=== PATIENT | male | born 1980 | race Caucasian/White ===

== ENCOUNTER 2020-10-08 19:18 | Inpatient (IN) | payer SELFPAY ==
[2020-10-08 19:19] VITALS: BP 147/121; PULSE 84; RESP 18; TEMP 36.6; O2SAT 92; BMI 49.6
--- NOTE | 2020-10-08 19:19 | XRR_ITS ---
PROCEDURE INFORMATION: Exam: XR Chest Exam date and time: 10/08/2020 7:19 PM Age: 40 years old Clinical indication: Pain; Shortness of breath; Left-sided; Patient HX: Left sided cp radiating to jaw and left armpit x today TECHNIQUE: Imaging protocol: XR of the chest. Views: 1 view. Total images: 1 COMPARISON: No relevant prior studies available. FINDINGS: Lungs: No visible active interstitial or alveolar airspace disease. Pleural spaces: Unremarkable. No pleural effusion. No pneumothorax. Heart/Mediastinum: Unremarkable. No cardiomegaly. Bones/joints: Unremarkable. Soft tissues: Heavy body habitus. XR/XR chest 1V portable [id number] IMPRESSION: Nonacute.
--- NOTE | 2020-10-08 19:20 | ECG_ITS ---
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 Measurements Intervals [place] Rate: 81 P: 42 [place]: 191 QRS: 5 QRSD: 109 T: 56 QT: 377 QTc: 439 Interpretive Statements SINUS RHYTHM No previous ECG available for comparison Electronically Signed On 10-08-2020 23:10:49 CDT by Aron Seay M.D. [id number]
--- NOTE | 2020-10-08 19:25 | W.ED.CHESTPA ---
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 States pressure type pain in center of his chest that radiated to his jaw and his arm and had some dyspnea as well with that. Patient's pain is been resolved with nitro. Patient transferred here from [facility] to be admitted for unstable angina. Associated symptoms: Deny abdominal pain, dyspnea, fever(s), nausea or vomiting Review of Systems Const: Denies: fever(s), chills, body aches or change in appetite Eyes: Denies: blurry vision or eye discomfort ENMT: Denies: throat pain or dental pain Card: Reports: chest pain Resp: Denies: dyspnea GI: Denies: abdominal pain, nausea, vomiting or diarrhea : Denies: dysuria Musc: Denies: neck pain or back pain Skin/Breast: Denies: rash Neuro: Denies: headache(s) Psych: Denies: depression [place]/Lymph: Denies: easy bruising All/Imm: Denies: urticaria Physical Exam Const: COMMON NORMALS: no acute distress, patient oriented x3 and healthy appearing HENMT: COMMON NORMALS: normocephalic and atraumatic HEAD & SCALP: normocephalic and atraumatic Eye: COMMON NORMALS: Equal, round and reactive pupils present and EOMs intact bilaterally PUPIL: Yes Equal, round and reactive pupils present Neck/C-Spine: COMMON NORMALS: full ROM and supple Chest: COMMONS NORMALS: normal inspection of the chest and normal palpation of entire chest wall Resp: COMMON NORMALS: normal respiratory effort, No retractions, No use of accessory muscles and clear to auscultation bilaterally AUSCULTATION: clear to auscultation bilaterally Cardio: COMMON NORMALS: regular rate, regular rhythm and No murmurs present (Cardio) RATE: regular rate RHYTHM: regular rhythm GI: COMMON NORMALS: Normal to inspection, nondistended, normoactive bowel sounds present, Soft to palpation, non-tender and no masses PALPATION: Yes Soft to palpation Extremity: COMMON NORMALS: normal to inspection and full ROM Neuro: COMMON NORMALS: patient oriented x3, moves all extremities and no focal motor deficits Psych: COMMON NORMALS: mental status grossly normal, Normal thought process present and cooperative THOUGHT PROCESS: Normal thought process present Skin: COMMON NORMALS: no rashes or lesions noted and no wounds GENERAL SKIN EXAM: no rashes or lesions noted Course Vital Signs: Vital signs: Vital Signs Temperature 97.9 F 10/08/20 19:19 Pulse Rate 84 10/08/20 19:19 Respiratory Rate 18 10/08/20 19:19 Blood Pressure 147/121 10/08/20 19:19 Pulse Oximetry 92 10/08/20 19:19 MDM - Chest Pain MDM Narrative: Medical decision making narrative: Patient presents here with chest pain that is since resolved. Spoke to hospitalist will admit for ACS rule out. EKG and troponin here are normal. Lab Data: Labs: Lab Results 10/08/20 10/08/20 10/08/20 Range/Units 19:29 19:29 19:29 WBC 10.4 H (4.0-10.0) 10^3/ uL RBC 4.54 (4.1-5.3) 10^6/u L Hgb 14.0 (11.7-16.6) g/dL Hct 42.5 (42.0-52.0) % MCV 93.6 (80-94) fL MCH 30.8 (28.0-34.0) pg MCHC 32.9 (30.0-36.0) g/dL RDW 12.8 (12.1-15.1) % Plt Count 250 (130-400) 10^3/c mm MPV 10.0 (7.4-10.4) fL Neut % (Auto) 58.7 % Lymph % (Auto) 31.3 % Dane % (Auto) 7.0 % Eos % (Auto) 2.2 % Baso % (Auto) 0.5 % Neut # (Auto) 6.08 (1.8-7.7) 10^3/u L Lymph # (Auto) 3.2 (0.8-4.8) 10^3/u L Dane # (Auto) 0.7 (0.2-0.9) 10^3/u L Eos # (Auto) 0.2 (0.0-0.8) 10^3/u L Baso # (Auto) 0.1 (0.0-0.1) 10^3/u L Nucleated RBC % (a uto) 0 % Nucleated RBCs # 0.0 /100WBC Sodium 140 (136-145) mmol/L Potassium 4.0 (3.5-5.1) mmol/L Chloride 104 (98-107) mmol/L Carbon Dioxide 26 (22-29) mmol/L Anion Gap 14.0 (5-19) BUN 10 (6-20) mg/dL Creatinine 1.0 (0.7-1.2) mg/dL GFR Calculation 83.2 L (90-130) mL/min Glucose 110 (65-115) mg/dL Calculated Osmolal ity 290 (285-295) mOsm/k g Calcium 8.4 L (8.5-10.5) mg/dL Total Bilirubin 0.4 (0.15-1.2) mg/dL AST 24 (0-40) U/L ALT 27 (0-41) U/L Alkaline Phosphata se 137 H (40-130) IU/L Troponin T Baselin e 6 (0-15) ng/L Total Protein 7.1 (6.6-8.7) g/dL Albumin 3.8 (3.5-5.2) g/dL Globulin 3.3 (1.3-4.6) g/dL EKG Data^: EKG 1: Attestation: I personally reviewed and interpreted this EKG as follows: EKG interpretation date: 10/08/20 EKG interpretation time: 19:26 Interpretation: nsr hr [address] or t wave abnormalities qrs 109 qtc 414 Discharge Plan Discharge Patient Disposition: Admitted As Inpatient Clinical Impression: Chest pain Condition: Stable Coding Level of Care Code ED Sr. Operations Manager for Chg Fwd Exam Comprehensive
[2020-10-08 19:36] LABS: Basophils # 0.1 10^3/uL (0.0-0.1); Basophils % 0.5 %; Eosinophils # 0.2 10^3/uL (0.0-0.8); Eosinophils % 2.2 %; Hematocrit 42.5 % (42.0-52.0); Lymphocytes # 3.2 10^3/uL (0.8-4.8); Lymphocytes % 31.3 %; Mean Corpuscular HGB Conc 32.9 g/dL (30.0-36.0); Mean Corpuscular Hemoglobin 30.8 pg (28.0-34.0); Mean Corpuscular Volume 93.6 fL (80-94); Monocytes # 0.7 10^3/uL (0.2-0.9); Neutrophils # 6.08 10^3/uL (1.8-7.7); Neutrophils % 58.7 %; Nucleated Red Blood Cells % 0 %; Platelet Count 250 10^3/cmm (130-400); Red Blood Count 4.54 10^6/uL (4.1-5.3); Red Cell Distribution Width 12.8 % (12.1-15.1); White Blood Count 10.4 10^3/uL (4.0-10.0)
[2020-10-08 19:50] LABS: Troponin(5th) Baseline 6 ng/L (0-15)
[2020-10-08 19:54] LABS: Alanine Aminotransferase 27 U/L (0-41); Albumin Level 3.8 g/dL (3.5-5.2); Alkaline Phosphatase 137 IU/L (40-130); Aspartate Amino Transferase 24 U/L (0-40); Blood Urea Nitrogen 10 mg/dL (6-20); Calcium 8.4 mg/dL (8.5-10.5); Carbon Dioxide 26 mmol/L (22-29); Chloride 104 mmol/L (98-107); Globulin 3.3 g/dL (1.3-4.6); Glomerular Filtration Rate 83.2 mL/min (90-130); Glucose 110 mg/dL (65-115); Osmolality Calculated 290 mOsm/kg (285-295); Sodium 140 mmol/L (136-145); Total Bilirubin 0.4 mg/dL (0.15-1.2); Total Protein 7.1 g/dL (6.6-8.7)
[2020-10-08 20:15] VITALS: BP 157/103; PULSE 88; RESP 21; O2SAT 96
[2020-10-08] MEDS: LORazepam 2 mg/mL INJ 1 mL 1 MG IVP (20:38)
[2020-10-08 20:43] VITALS: BP 157/103; PULSE 90; RESP 17; O2SAT 97
[2020-10-08 20:56] VITALS: BP 147/95; PULSE 86; RESP 24; TEMP 36.7; O2SAT 97
[2020-10-08 21:56] LABS: Troponin 5 2HR Delta 0 ABS# (0-10)
[2020-10-08 22:00] VITALS: PULSE 85
--- NOTE | 2020-10-08 22:38 | PM.HP ---
Providers/Chief Complaint Admitting Physician: Catalina Carver MD Primary Care Provider: None Chief Complaint: CHEST PAIN History of Present Illness Kee Ames is a 40 year old male who presented to [facility] via ambulance for chest pain. 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 He had worked during the day taking care of usual things related to his cargo without any difficulties. After working on one such load he went to get in the truck and had onset of chest discomfort and difficulty breathing. He stopped the truck and got out and tried to walk around to the other side and his pain became much more significant. It is located in the center of the chest. Described as a tightness. At its worst a 10 out of 10. It radiated up into this left arm and jaw area. He describes not being able to catch his breath. He was diaphoretic, nauseated and had 2 episodes of vomiting. He takes a baby aspirin daily and was given aspirin via EMS. Sublingual nitroglycerin and IV metoprolol plus Nitropaste led to resolution of his symptoms. Initial EKG did not show any acute ST segment changes. Initial troponin at outside facility was in normal limits. He has a family history of premature coronary artery disease with his paternal grandfather dying before age 50 of heart disease. His father and his brother also have heart problems. He has had 1 similar episode a couple of years ago when he was driving in [place]. That episode was not as severe as this 1. He underwent arteriogram that he describes as having showed a 40% blockage in a vessel. He is not certain which vessel was blocked. He started aspirin therapy then and was also prescribed lisinopril for blood pressure control. He does not take the lisinopril regularly and admits to having 9 for at least a month. He has never had any other cardiac testing. He does not follow regularly with a primary care provider. Denies any diabetes or hyperlipidemia. He does smoke about three quarters of a pack of cigarettes a day. He admits to having anxiety that can be quite severe. He has had panic attacks before but said that this episode was very different from what he considers his usual anxiety attacks. According to the ER physician in [facility] ED provider spoke with Dr. Seay who recommended transfer to our emergency room and admission to hospitalist service. Repeat EKG and troponin here were unremarkable. He has not had any recurrent chest pain but he has been quite anxious now concerned that something is going on. He received a dose of Ativan in our emergency room. He has taken Xanax in the past but is not on any presently. Given his history and description of acute event today he is being admitted to observation status for further evaluation as indicated. Review of Systems Const: Reports: diaphoresis; Denies: fever(s) or chills ENMT: Denies: throat pain or nasal congestion Card: Reports: chest pain, pre-syncope and dyspnea on exertion; Denies: palpitations, edema or orthopnea Resp: Reports: dyspnea and productive cough (Mild smoker's cough); Denies: non-productive cough, pain on inspiration or hemoptysis GI: Reports: nausea and vomiting; Denies: abdominal pain, diarrhea, constipation, hematochezia or melena : Reports: difficulty with ejactulations and erectile dysfunction (on no meds for this); Denies: difficulty urinating Musc: Denies: other (complaints of joint or muscle pain) Skin/Breast: Denies: rash or sores Neuro: Denies: headache(s), numbness in extremities, weakness in extremities or difficulty walking Psych: Reports: anxiety, depression and panic attacks; Denies: suicidal ideation [place]/Lymph: Denies: easy bleeding Medications/Allergies Home Medications Medication Instructions Recorded Confirmed Last Taken Type aspirin [Aspirin Low Dose] 81 mg PO DAILY 10/09/20 10/09/20 10/08/20 History Allergies Allergy/AdvReac Type Severity Reaction Status Date / Time No Known Allergies Allergy Verified 10/08/20 19:23 PFSH Acute PFSH: Medical History (Updated 10/09/20 @ 01:05 by Catalina Carver MD) Anxiety and depression BMI 45.0-49.9, adult Hypertension Surgical History (Updated 10/09/20 @ 00:45 by Catalina Carver MD) History of arteriography (~2018) 40% blockage one vessel, details unknown otherwise, performed in [place] Family History (Updated 10/09/20 @ 00:42 by Catalina Carver MD) Grandfather CAD (coronary artery disease) Paternal grandfather, age less than 50 from heart disease Father , in 2018, had multiple comorbid conditions contributing Diabetes CAD (coronary artery disease) Parkinson's disease Brother CAD (coronary artery disease) Social History (Updated 10/09/20 @ 00:43 by Catalina Carver MD) Smoking and tobacco status: current every day smoker cigarettes Number of cigarettes per day: 11-20 Alcohol intake: current Alcohol intake frequency: holidays/special occasions only Substance/Drug Use: never Household members: spouse Marital status: Current occupational status: employed 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 Vitals/I&O/Wt Last Vital Signs Temp 98.1 F 10/08/20 20:56 Pulse 85 10/08/20 22:00 Resp 24 H 10/08/20 20:56 BP 147/95 10/08/20 20:56 Pulse Ox 97 10/08/20 20:56 10/08/20 10/08/20 10/09/20 14:59 22:59 06:59 Output Total 250 / 250 Balance -250 / -250 Weight last 48 hrs Weight 189.602 kg Physical Exam Narrative: EXAM NARRATIVE: Constitutional: Awake and alert, anxious but cooperative HEENT: Normocephalic atraumatic pupils are equally reactive nasopharynx is clear, oropharynx is clear with moist mucous membranes Neck: Large but supple Respiratory: Clear to auscultation bilaterally without any rales rhonchi or wheezes Cardiovascular: Regular rate and rhythm, no murmurs gallops or rubs, no appreciable JVD, 2+ radial pulses, 1+ pedal pulses Abdomen: Soft, obese, nontender, positive bowel sounds Extremities: Pitting edema, no palpable cords or calf tenderness Skin: No large bruises or rashes Neuro: Speech clear, face symmetric, handgrip equal, no abnormal movements Psych: Normal affect, a bit anxious but appears to have some good insight into his anxiety and depression issues and is able to talk to about them even if he is not sure what to do. Not suicidal 1. Data : 10/08/20 19:29 10/08/20 19:29 A&P Assessment and plan (1) Chest pain: Fairly classic description of anginal pain although with normal EKG and troponin presently. He had a angiogram a couple of years ago in [place] for similar but less severe symptoms. Reports he had a 40% blockage although was unsure which vessel. Was diagnosed with hypertension at that time and started on lisinopril and aspirin therapy but has been inconsistent in compliance due to not having a primary care provider and cost. He does smoke and his blood pressure was quite elevated upon presentation to outside facility. Hypertension, pulmonary hypertension, obesity hypoventilation, thromboembolic event, anxiety, gastroesophagitis or sequela from infection are all within the differential as was reviewed with the patient. Status: Acute Qualifiers: Chest pain type: precordial pain Qualified Code(s): R07.2 - Precordial pain (2) Hypertension: Status: Chronic Qualifiers: Hypertension type: essential hypertension Qualified Code(s): I10 - Essential (primary) hypertension (3) History of arteriography: Status: Chronic (4) Family history of premature CAD: Status: Chronic (5) Anxiety and depression: Status: Acute (6) Nicotine dependence, cigarettes, uncomplicated: Status: Acute (7) BMI 45.0-49.9, adult: Status: Chronic Additional A&P Information Observation admission Continue serial cardiac enzymes Telemetry monitoring overnight Check lipid panel and hemoglobin A1c Resume lisinopril at 20 mg dosing Sublingual nitroglycerin as needed Continue aspirin therapy Plan for stress testing in the morning Given that he is 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 He is not interested currently in trying to quit smoking but realizes that he is either smoking or having to ask for medications to help with his nerves if he is not smoking. He is aware of options such as nicotine patch or nicotine gum. -Reviewed with patient some behavioral techniques to try to manage his anxiety and depression symptoms including walking, taking deep breaths, positive self talk, being open with his about the things going on which it sounds like he is. He did discuss what I suspect is an effect on libido and I know that this is at least part of something that is bothering him right now from what he shared. Reviewed with him that ensuring that his blood vessels are okay including things like not smoking, managing his blood pressure may help decrease this from being a problem. We talked about the fact that some medications for anxiety and depression can also contribute to this and that he should be open in that regard should he seek out a primary care or other provider to assist him. I encouraged him to establish primary care to talk about his symptoms. He wants to try to get better and had good participation and insight during our discussion. Currently low risk for VTE Anticipated disposition to home Recommend establishing primary care either in [facility] or here and maintaining regular follow-up to help him not only with management of his blood pressure and other cardiac risk factors but also with his depression and anxiety as needed. Did review with him that there are medication assistance programs such as a [address] or other pharmacy assistance program which may be available in [facility] and if not it is something that could be utilized through one of our providers here in [place] if needed Plans, findings and concerns were discussed with the patient as well as his . Both were given an opportunity to ask questions. Full code Attestations Medical Necessity Statement*: Anticipated stay less than 2 midnights in a patient presenting with chest pain strongly suspicious for angina although with unremarkable EKGs and cardiac enzymes thus far. He does have a family history of early cardiac . Coding Level of Care Code Acute Orthopedic Physical Therapist for Corinag Juliocesard Diagnoses Chest pain R07.2 Chest pain type: precordial pain Hypertension I10 Hypertension type: essential hypertension History of arteriography Z98.890 Family history of premature CAD Z82.49 Anxiety and depression F41.9; F32.9 Nicotine dependence, cigarettes, uncomplicated F17.210 BMI 45.0-49.9, adult Z68.42
[2020-10-09] VITALS (7 sets, daily range): BP systolic 142–162; BP diastolic 95–108; PULSE 58–87; RESP 15–24; TEMP 36.7; O2SAT 98
[2020-10-09] MEDS: zolpidem 5 mg Tablet PO (00:01)
[2020-10-09] MEDS: ALPRAZolam 0.25 mg Tablet PO ×2 (00:01→09:51)
--- NOTE | 2020-10-09 00:29 | NMCV_ITS ---
NM harris perf SPECT r/s* [id number] Kee Ames Age: 40 Gender: M : 1980 Exam Date: 10/09/2020 07:08 Ordering Phys: Catalina Carver MD Technologist: CARLO Wilkins Exam Location: [facility] Indications: CHEST PAIN STRESS TEST [facility] IMAGE PROTOCOL Rest/Stress 1 Lexiscan Day Radiopharmaceutical Dose (mCi) Administration Site Administered by Rest: Tc-99m 10.9 IV CARLO Croft Sestamibi Stress:Tc-99m 33.0 IV CARLO Croft Sestamibi Rest: 09-Oct-2020 60 Discovery 630 Stress: 09-Oct-2020 30 Discovery 630 0.4mg Lexiscan. Images obtained in supine and prone position. SPECT RESULTS Technical Quality: Excellent Raw Data Analysis: Normal Image Corrections: No attenuation or motion correction applied Summed Stress Score: 0 Summed Rest Score: 1 Summed Difference Score: 0 PERFUSION FINDINGS There is an area of persistent low radiotracer uptake in the anterior wall present both on rest and stress. Likely from attenuation artifact. No evidence of ischemia is noted. FUNCTIONAL RESULTS (calculated via Gated SPECT) Stress Image LV EF (%): 61 Stress EDV (mL):173 TID: 1.04 Stress ESV (mL):68 FUNCTIONAL FINDINGS: There is normal left ventricular systolic function. IMPRESSIONS 1. Area of persistently low radiotracer uptake in the anterior wall likely secondary to attenuation artifact. No evidence of ischemia. 2. LV systolic function is normal Aron Seay MD (Electronically Signed) Final Date: 09 October 2020 11:05 S
[2020-10-09] MEDS: sodium chlor 0.45% +KCl 20 mEq 20 MEQ/1,000 ML BAG 75 MEQ IV (01:12)
--- NOTE | 2020-10-09 01:20 | ECG_ITS ---
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 Measurements Intervals [place] Rate: 80 P: 48 MD: 189 QRS: 21 QRSD: 121 T: 66 QT: 391 QTc: 454 Interpretive Statements SINUS RHYTHM INDETERMINATE AXIS MODERATE INTRAVENTRICULAR CONDUCTION DELAY [110+ ms QRS DURATION] Compared to ECG 10/08/2020 19:26:37 Indeterminate axis now present Intraventricular conduction delay now present Electronically Signed On 10-12-2020 23:16:43 CDT by Concepcion Morgan M.D. [id number]
[2020-10-09 01:43] LABS: D Dimer 0.33 ug/mIFEU (0-0.59)
[2020-10-09 01:50] LABS: Estmated Average Glucose 111; Hemoglobin A1C 5.5 % (4.0-6.0)
[2020-10-09 02:14] LABS: Chol HDL Ratio 6.13 mg/dL (1.0-5.00); Cholesterol 147 mg/dL (0-200); HDL Cholesterol 24 mg/dL (60-100); LDL Cholesterol Calculated 92 mg/dL (50-129); LDL HDL Ratio 3.83 RATIO (0.00-3.22); Triglycerides 157 mg/dL (0-150)
[2020-10-09] MEDS: regadenoson 0.4 Mg/5 ml Syringe IVP (07:48)
[2020-10-09] MEDS: lisinopril 20 mg Tablet PO (09:51)
[2020-10-09] MEDS: aspirin 81 mg EC Tablet PO (09:51)
--- NOTE | 2020-10-09 10:33 | PC.NURSE ---
stress test completed.pt tolerated procedure well.
--- NOTE | 2020-10-09 10:35 | USCV_ITS ---
HuiKee luna Age: 40 Gender: M : 1980 Exam Date: 10/09/2020 11:06 Ordering Phys: Jeison Munoz MD Technologist: Joya Mcnamara Exam Location: [facility] Indication: chest pain, ATKINS BP: 160 / 95 HR: 73 Rhythm: Sinus Technical Quality: Poor because of body habitus MEASUREMENTS (Male / Female) Normal Values 2D ECHO LV Diastolic Diameter PLAX 4.4 cm 4.2 - 5.9 / 3.9 - 5.3 cm LV Systolic Diameter PLAX 2.7 cm IVS Diastolic Thickness 1.5 cm 0.6 - 1.0 / 0.6 - 0.9 cm IVS Systolic Thickness 1.7 cm LVPW Diastolic Thickness 2.0 cm 0.6 - 1.0 / 0.6 - 0.9 cm LVPW Systolic Thickness 2.6 cm LVOT Diameter 2.1 cm LV Ejection Fraction 2D Teich 69.9 % LA Diameter 3.5 cm LA Width 3.5 cm LA Height 5.0 cm Aorta at Sinotubular Diameter 3.4 cm M-MODE LV Diastolic Diameter MM 5.1 cm 4.2 - 5.9 / 3.9 - 5.3 cm LV Systolic Diameter MM 2.3 cm LV Ejection Fraction MM Teich 85.0 % IVS Diastolic Thickness MM 1.1 cm 0.6 - 1.0 / 0.6 - 0.9 cm IVS Systolic Thickness MM 1.9 cm LVPW Diastolic Thickness MM 1.2 cm 0.6 - 1.0 / 0.6 - 0.9 cm LVPW Systolic Thickness MM 2.4 cm Aortic Annulus Diameter 3.0 cm LA Ao Ratio MM 1.3 MV E Point Septal Separation 0.3 cm DOPPLER AV Peak Velocity 104.0 cm/s LVOT Peak Velocity 75.0 cm/s AV Area Cont Eq vti 2.8 cm squared AV Area Cont Eq pk 2.5 cm squared MV Peak Velocity 94.0 cm/s MV Area PHT 3.3 cm squared Mitral E to A Ratio 1.2 MV E' Velocity 35.5 cm/s Mitral E to MV E' Ratio 8.3 Mitral E to LV E' Lateral Ratio 9.9 Mitral E to LV E' Septal Ratio 7.1 PV Peak Velocity 104.7 cm/s RV Acceleration Time 0.1 s RV Ejection Time 0.3 s RV AcT/ET 0.4 FINDINGS Left Ventricle Normal left ventricle cavity size. Probably normal left ventricle systolic function. The study is inadequate for estimation of regional wall motion abnormality. Right Ventricle Normal right ventricular size and systolic function. Right Atrium Right atrium not well visualized. Left Atrium Left atrium not well visualized. Mitral Valve Mildly thickened mitral valve. Trace mitral valve regurgitation. Aortic Valve Aortic valve not well visualized. Probably tricuspid aortic valve. No aortic valve stenosis. Tricuspid Valve Tricuspid valve not well visualized. Pulmonic Valve No pulmonary valve stenosis. Pericardium No pericardial effusion. Aorta Probably normal-sized aortic root. CONCLUSIONS 1. This is a technically very difficult study because of habitus and poor windows. 2. Normal left ventricle cavity size. Probably normal left ventricle systolic function. The study is inadequate for estimation of regional wall motion abnormality. 3. No prior similar studies to compare. Concepcion Morgan MD (Electronically Signed) Final Date: 09 October 2020 13:16 S
--- NOTE | 2020-10-09 12:41 | PC.CHAP ---
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 [] Patient/Family/Request visit [] Outpatient visit [] Follow-up visit [] Physician referral [] Code/Alert [] Routine visit [] Staff referral [] Actively dying [] Patient sleeping [] Family support [] [] Out of room [] Palliative care [] [xx] Receiving care in room [] Pre-surgical visit [] Trauma [] Long length of stay [] ICU visit [] Other: Relational/Emotional Strength [] Patient feels connected with others/family/visitors/staff [] Distress [] Loneliness/isolation [] Abandonment Spirituality of Patient [] Person of Kirsten [] Attends Confucianism of their Kirsten [] Believes in Prayer [] Reads Bible or Catholic materials [] There are Spiritual issues to be addressed 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 [] Prayer [] Active listening [] Non-anxious presence [] Spiritual/emotional support [] Crisis/trauma care [] Spiritual counseling [] Bereavement support [] Provided bereavement packet [] Provided Bible/devotional materials [] Provided toy/stuffed animal, coloring book to patient or family member [] Provided Communion [] Anointing/Tiline [] Salvation [] Completed spiritual assessment [] Other: Impact on Illness or Injury [] Angry [] Fearful [] Anxious [] Often cries [] Exhaustion [] Unable to work [] Unable to attend yazidi [] Unable to walk/stand [] Unable to read [] Unable to drive [] Unable to eat/drink [] Unable to sleep [] Unable to be with family [] Patient intubated [] Other: Summary Follow up needed Time spent with patient 1 minute
--- NOTE | 2020-10-09 14:43 | PM.DCS ---
Discharge Providers Date of Admission: 10/08/20 19:29 Date of Discharge: October 09, 2020 Attending Provider at Admission: Catalina Carver MD Attending Provider at Discharge: Jeison Munoz Diagnoses at Discharge Discharge Diagnosis (1) Chest pain: Status: Acute Qualifiers: Chest pain type: precordial pain Qualified Code(s): R07.2 - Precordial pain (2) Hypertension: Status: Chronic Qualifiers: Hypertension type: essential hypertension Qualified Code(s): I10 - Essential (primary) hypertension (3) History of arteriography: Status: Chronic Permanent problem details: 40% blockage one vessel, details unknown otherwise, performed in [place] (4) Family history of premature CAD: Status: Chronic (5) Anxiety and depression: Status: Acute (6) Nicotine dependence, cigarettes, uncomplicated: Status: Acute (7) BMI 45.0-49.9, adult: Status: Chronic Reason for Visit Reason for Visit: CHEST PAIN Hospital Course Hospital Course 40-year-old gentleman with history of anxiety depression, hypertension, current smoker, obesity, family history of CAD was observed in the hospital after presenting with chest pain, dyspnea exertion, chest tightness, 10/10 pain, radiating to left arm and jaw area, unable to catch his breath. No acute ST changes were found on EKG. High-sensitivity troponin series were negative. He was additionally monitored in hospital. Blood pressures noted elevated, treated with lisinopril. Smoking cessation was discussed with 4 minutes, given risk factors of coronary disease including, history, physical shortness of breath, he verbalized understanding that he should try to quit, and is considering doing so at some point in the future. Please revisit with him during the office visit. He underwent nuclear perfusion scanning with Lexiscan, with noted to have persistently low radiotracer uptake in the anterior wall likely secondary to attenuation artifact. No evidence of ischemia. LV systolic function normal. Echocardiogram was obtained due to reported dyspnea exertion, intermittent ankle swelling. Very technically difficult study, normal left atrial cavity size, probably normal LV systolic function. Discussed results with patient, as well as limitations. He is feeling better. Denies any chest pain. He has denied orthopnea, and occasional ankle swelling appears to be related to standing and walking. However, he is at risk of progression to congestive failure in the future. Discussed with him monitoring of his blood pressures, and will continue treatment at home with lisinopril-HCTZ. Please reevaluate blood pressures in office and adjust therapy as appropriate. Please follow up renal function. Discussed with him as per age he does not get food the recommended guidelines, however, with multiple risk factors, he may benefit from statin to reduce cardiovascular risk, and he is agreeable to starting at this time with medium dose statin after discussion of risks and benefits. Physical Exam Const: COMMON NORMALS: no acute distress, patient oriented x3 and alert GENERAL APPEARANCE: cooperative NUTRITIONAL APPEARANCE: obese ORIENTATION/CONSCIOUSNESS: Yes awake HENMT: COMMON NORMALS: oropharynx normal Neck/C-Spine: COMMON NORMALS: no JVD Resp: COMMON NORMALS: normal respiratory effort and clear to auscultation bilaterally AUSCULTATION: clear to auscultation bilaterally Cardio: COMMON NORMALS: no JVD, regular rhythm, S1 normal heart sound present, S2 normal heart sound present and No murmurs present (Cardio) RHYTHM: regular rhythm HEART SOUNDS: S1 normal heart sound present and S2 normal heart sound present GI: COMMON NORMALS: Normal to inspection, nondistended, normoactive bowel sounds present, Soft to palpation and non-tender PALPATION: Yes Soft to palpation Extremity: COMMON NORMALS: no joint enlargement and no pedal edema Neuro: COMMON NORMALS: patient oriented x3 and moves all extremities SENSORIUM/ORIENTATION: Yes alert Skin: COMMON NORMALS: no rashes or lesions noted GENERAL SKIN EXAM: no rashes or lesions noted Discharge Data Data Completed and Pending: Completed Studies During Hospitalization Category Date Time Status XR chest 1V pam ble [id number] Stat Exams 10/08/20 19:19 Completed NM harris perf SPECT r/s* [id number] Routin e Nuc Med 10/09/20 00:29 Completed CV echo complete* [id number] Routine Ultrasound 10/09/20 10:35 Completed Pending at discharge Category Date Time Status Sestamibi Stress Test Request Routi ne Exams 10/10/20 06:00 Ordered Labs from last 24 hours 10/09/20 10/09/20 10/09/20 01:15 01:15 01:15 WBC RBC Hgb Hct MCV MCH MCHC RDW Plt Count MPV Neut % (Auto) Lymph % (Auto) Cedar % (Auto) Eos % (Auto) Baso % (Auto) Neut # (Auto) Lymph # (Auto) Cedar # (Auto) Eos # (Auto) Baso # (Auto) Nucleated RBC % (a uto) Nucleated RBCs # D-Dimer 0.33 Sodium Potassium Chloride Carbon Dioxide Anion Gap BUN Creatinine GFR Calculation Glucose Estimat Average Gl ucose 111 Hemoglobin A1c 5.5 Calculated Osmolal ity Calcium Total Bilirubin AST ALT Alkaline Phosphata se Troponin T Baselin e Troponin T 120 Min elem Delta Troponin T Troponin T Hi Sens 6Hr Troponin T Hi Sens 6Hr Delta Total Protein Albumin Globulin Triglycerides 157 H Cholesterol 147 LDL Cholesterol, C alc 92 HDL Cholesterol 24 L LDL/HDL Ratio 3.83 H Cholesterol/HDL Ra alvaro 6.13 H 10/09/20 10/08/20 10/08/20 01:15 21:20 19:29 WBC RBC Hgb Hct MCV MCH MCHC RDW Plt Count MPV Neut % (Auto) Lymph % (Auto) Cedar % (Auto) Eos % (Auto) Baso % (Auto) Neut # (Auto) Lymph # (Auto) Cedar # (Auto) Eos # (Auto) Baso # (Auto) Nucleated RBC % (a uto) Nucleated RBCs # D-Dimer Sodium Potassium Chloride Carbon Dioxide Anion Gap BUN Creatinine GFR Calculation Glucose Estimat Average Gl ucose Hemoglobin A1c Calculated Osmolal ity Calcium Total Bilirubin AST ALT Alkaline Phosphata se Troponin T Baselin e 6 Troponin T 120 Min elem 6.00 Delta Troponin T 0 Troponin T Hi Sens 6Hr 7.30 Troponin T Hi Sens 6Hr Delta 1.30 Total Protein Albumin Globulin Triglycerides Cholesterol LDL Cholesterol, C alc HDL Cholesterol LDL/HDL Ratio Cholesterol/HDL Ra alvaro 10/08/20 10/08/20 19:29 19:29 WBC 10.4 H RBC 4.54 Hgb 14.0 Hct 42.5 MCV 93.6 MCH 30.8 MCHC 32.9 RDW 12.8 Plt Count 250 MPV 10.0 Neut % (Auto) 58.7 Lymph % (Auto) 31.3 Cedar % (Auto) 7.0 Eos % (Auto) 2.2 Baso % (Auto) 0.5 Neut # (Auto) 6.08 Lymph # (Auto) 3.2 Cedar # (Auto) 0.7 Eos # (Auto) 0.2 Baso # (Auto) 0.1 Nucleated RBC % (a uto) 0 Nucleated RBCs # 0.0 D-Dimer Sodium 140 Potassium 4.0 Chloride 104 Carbon Dioxide 26 Anion Gap 14.0 BUN 10 Creatinine 1.0 GFR Calculation 83.2 L Glucose 110 Estimat Average Gl ucose Hemoglobin A1c Calculated Osmolal ity 290 Calcium 8.4 L Total Bilirubin 0.4 AST 24 ALT 27 Alkaline Phosphata se 137 H Troponin T Baselin e Troponin T 120 Min elem Delta Troponin T Troponin T Hi Sens 6Hr Troponin T Hi Sens 6Hr Delta Total Protein 7.1 Albumin 3.8 Globulin 3.3 Triglycerides Cholesterol LDL Cholesterol, C alc HDL Cholesterol LDL/HDL Ratio Cholesterol/HDL Ra alvaro Vitals: Last Vital Signs Temp 98.1 F 10/09/20 12:00 Pulse 87 10/09/20 12:00 Resp 24 H 10/09/20 12:00 BP 162/108 10/09/20 12:00 Pulse Ox 98 10/09/20 12:00 Discharge Plan Discharge Patient Disposition: Home Condition: Stable Prescriptions: New lisinopril-hydrochlorothiazide 20-12.5 mg tablet 1 tab PO DAILY Qty: 30 RF: 3 simvastatin 20 mg tablet 20 mg PO DAILY Qty: 30 RF: 0 Continued Aspirin Low Dose 81 mg Tablet,Delayed Release (Dr/Ec) 81 mg PO DAILY RF: 0 Discharge Orders: Discharge Order (Routine); Ordered 10/09/20 Ordered By: Jeison Munoz Other Ambulatory Orders: Pulmonary Function Screen with Bronchodilator (Routine) Timeframe: 2 Days Facility: [facility] - Location: Respiratory Therapy Ordered By: Jeison Munoz Referrals: [facility] [Provider Group] - 1 week (Anxiety) Darby Topete DO [Physician] - 10/23/20 10:30 am Discharge Diet: Cardiac Discharge Activity: Increase activity as tolerated Patient Instructions: Simvastatin (By mouth), Lisinopril/Hydrochlorothiazide (By mouth), Cigarette Smoking and Your Health (GEN), Hypertension (GEN), Chest Pain Stoplight, Opioid Safety Activity Restrictions/Additional Instructions: Please monitor your blood pressures at home 2-3 times daily, record values for the next 2 weeks due to noted elevated blood pressures/hypertension in the hospital. Please discuss with your primary care doctor. Continue on blood pressure medications. Have your primary care doctor follow-up your kidney function at the next appointment. About 30% increase in creatinine may be expected with this medication, however, if increasing beyond that, this medication need to be changed to a different 1. Please stop smoking, as continued smoking puts you at risk of cardiovascular disease, including heart attack, stroke, congestive heart failure, lung disease including emphysema, as well as additional other complications including various cancers. Please follow-up with the pulmonary function test, and discuss results with your primary care provider. Please follow up with behavioral health care to assist with treatment of anxiety in addition to discussing with your primary care provider. If you experience severe chest pain, severe shortness of breath, feeling faint, any worsening of depression, or any other concerning symptoms, please seek medical attention. Discharge Attestations Time Spent in Discharge Care*: greater than 30 min Quality Metrics Clinical Quality Measures During this hospital stay, did patient experience: None Coding Level of Care Code Acute [facility] FW CT note Diagnoses Chest pain R07.2 Chest pain type: precordial pain Hypertension I10 Hypertension type: essential hypertension History of arteriography Z98.890 Family history of premature CAD Z82.49 Anxiety and depression F41.9; F32.9 Nicotine dependence, cigarettes, uncomplicated F17.210 BMI 45.0-49.9, adult Z68.42
--- NOTE | 2020-10-09 15:23 | PC.RESP ---
Smoking Cessation information sent to patient.
[2020-10-09] MEDS: haloperidol inj 5 mg/mL INJ 1 mL IM (17:44)
[2020-10-09] MEDS: LORazepam 2 mg/mL INJ 1 mL IM (17:45)
[2020-10-09] MEDS: diphenhydrAMINE 50 mg/mL SDV 1mL IM (17:45)
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
[2020-10-09] MEDS: CLONazepam 1 mg Tablet 0.5 MG PO (18:19)
[2020-10-09] MEDS: sertraline 50 mg Tablet PO (18:19)
--- NOTE | 2020-10-09 18:28 | PC.NURSE ---
Addendum entered by Bri Hernández LPN 10/09/20 18:54: 1854 follow up, pt is calm and relaxing in his room, cool, and calm at this time. Will continue to monitor pt until the end of my shift. Original Note: prn 1745 Administered (B52) 50 mg Benadryl, 5 mg haloperidol, 2 mg Ativan for agitation and severe anxiety, upon arrival to the unit. Will follow up and continue to monitor pt.
--- NOTE | 2020-10-09 18:47 | PC.NURSE ---
Patient Behavior 40 y/o transfer from [facility]. Was in for observation and at discharge he made a suicidal statement. Orders for 96 and transfer to NPU given. Patient was irritable and demanding in [facility] and on admit patient became violent and was stating he would hurt staff when he was told he was 96'd. Making statements to the effect he would do what ever it took to leave this place. Given B 52 voluntarily with security present. Dr Abdullahi came in adh saw the patient and started him on scheduled medications. Patient calmed but still has potential for intermittent explosive outbursts.
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
[2020-10-10 06:00] VITALS: RESP 17
--- NOTE | 2020-10-10 06:00 | ECG_ITS ---
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 Interpretive Statements NAME OF STUDY: LEXISCAN SESTAMIBI STRESS TEST INDICATION: [angina, hypertension,smoker,obesity, ] Procedure: At the baseline, the blood pressure was 143/102 mmHg with a heart rate of 72 bpm. The electrocardiogram showed normal sinus rhythm, normal axis with normal ST and T's. The Lexiscan was infused over a period of 20 seconds. A total of 0.4 mg of Lexiscan was infused. The stress phase was continued for a total of 5 minutes. Heart rate was at the end of stress phase was 79 bpm and a blood pressure of 155/100mmHg. The EKG at the peak infusion revealed since normal sinus rhythm with no significant ST-T wave changes. Sestamibi was injected 20 seconds after the Lexiscan infusion. Blood pressure at the end of recovery phase was 155/97 mmHg with a heart rate of 74 bpm. Conclusion: 1. Normal EKG response to Lexiscan infusion 2. No Lexiscan induced chest pain or cardiac arrhythmia. 3. Normal blood pressure and heart rate response. 4. Sestamibi/sestamibi perfusion scan pending; see separate report. Electronically Signed On 11-24-2020 15:04:45 CDT by Aron Seay M.D. [email or web address]
[2020-10-10] MEDS: sertraline 50 mg Tablet PO (09:18)
[2020-10-10] MEDS: CLONazepam 1 mg Tablet 0.5 MG PO ×2 (09:22→17:08)
[2020-10-10] MEDS: nicotine 21 mg Patch 1 PATCH TRANSDERMA (11:36)
--- NOTE | 2020-10-10 12:21 | P.PN_ITS ---
Subjective NPU Subjective: Interval history: Reports intermittent mood symptoms, occasional low mood but denies any interval suicidal ideation Reports improvement in his anxiety symptoms but continues to report intermittent anxiety, denies any interval panic attacks Patient is apologetic about his behavior previous afternoon States that he slept okay but had difficulty initiating sleep, reports having frequent nightmares several times a week Reports being compliant with his medication, denies any medication side effects Mental Status Exam MSE Comments: Standing outside of his room in the hallway, appropriately groomed and dressed, calm, cooperative, good eye contact Psychomotor activity is neither increased nor decreased, no agitation Speech is normal rate and volume, spontaneous, fair articulation, not pressured I feel much better, congruent affect, not labile Alert and oriented to person, place, time, situation Memory and concentration appear to be intact per interview Thought process, linear, no flight of ideas, no looseness of associations Thought content, no delusions, no hallucinations, no suicidal or homicidal ideation Insight and judgment appear to be fair to intact Vitals/I&O/Wt Last Vital Signs Temp 98.1 F 10/09/20 15:03 Pulse 87 10/09/20 15:03 Resp 17 10/10/20 06:00 BP 142/108 10/09/20 17:04 Pulse Ox 98 10/09/20 15:03 Weight last 48 hrs Weight 189.602 kg Data NPU : 10/08/20 19:29 10/08/20 19:29 A&P Assessment and plan (1) Suicidal ideation: Status: Acute (2) Anxiety disorder, unspecified: Status: Acute Qualifiers: Anxiety disorder type: unspecified anxiety disorder Qualified Code(s): F41.9 - Anxiety disorder, unspecified (3) PTSD (post-traumatic stress disorder): Status: Acute Additional A&P Information Reports improving trauma related mood and anxiety, denies any interval suicidal ideation, reports tolerating medication well Continues to report sleep difficulty INCREASE to sertraline 100 mg daily targeting trauma related mood and anxiety symptoms START prazosin 1 mg at bedtime targeting nightmares, sleep Continue to monitor Involuntary Hold Information 96 Hour Hold: 96 Hour Involuntary Admission: Yes 96 Hour Hold Ending Date: 10/15/20 96 Hour Hold Ending Time: 16:58 Attestations NPU Medical Necessity Statement*: Continues to require psychiatric hospitalization for medication stabilization Coding Level of Care Code Acute System Manager for [facility] Fwd Diagnoses Suicidal ideation R45.851 Anxiety disorder, unspecified F41.9 Anxiety disorder type: unspecified anxiety disorder PTSD (post-traumatic stress disorder) F43.10
[2020-10-10] MEDS: hyDROXYzine 25 mg Capsule 50 MG PO (12:29)
[2020-10-10 14:00] VITALS: BP 142/108; PULSE 87; RESP 17; TEMP 36.7
[2020-10-10] MEDS: nicotine 2 mg Gum BUCCAL (18:20)
[2020-10-10 19:54] VITALS: BP 175/95; PULSE 94; RESP 18; TEMP 36.7; O2SAT 96
[2020-10-10] MEDS: prazosin 1 mg Capsule PO (20:58)
[2020-10-10] MEDS: aspirin 81 mg Chew Tablet PO (20:58)
[2020-10-10] MEDS: atorvastatin 40 mg Tablet 20 MG PO (20:58)
[2020-10-10] MEDS: lisinopril 20 mg Tablet PO (20:59)
[2020-10-10] MEDS: hydroCHLOROthiazide 25 mg Tablet 12.5 MG PO (20:59)
[2020-10-10 21:34] VITALS: BP 155/98; PULSE 85
[2020-10-11 06:00] VITALS: BP 152/90; PULSE 113; RESP 17; TEMP 36.7; O2SAT 96
--- NOTE | 2020-10-11 08:00 | PC.NURSE ---
Addendum entered by Nataly Pak RN 10/11/20 14:44: Nicotine on left shoulder Original Note: Patient requested a Nicotine patch.
[2020-10-11] MEDS: atorvastatin 40 mg Tablet 20 MG PO (08:11)
[2020-10-11] MEDS: hydroCHLOROthiazide 25 mg Tablet 12.5 MG PO (08:11)
[2020-10-11] MEDS: lisinopril 20 mg Tablet PO (08:12)
[2020-10-11] MEDS: sertraline 50 mg Tablet 100 MG PO (08:12)
[2020-10-11] MEDS: aspirin 81 mg EC Tablet PO (08:12)
[2020-10-11] MEDS: CLONazepam 1 mg Tablet 0.5 MG PO (08:12)
[2020-10-11] MEDS: nicotine 21 mg Patch 1 PATCH TRANSDERMA (08:18)
[2020-10-11] MEDS: nicotine 2 mg Gum BUCCAL ×3 (08:18→17:06)
[2020-10-11] MEDS: hyDROXYzine 25 mg Capsule 50 MG PO ×2 (11:23→20:22)
--- NOTE | 2020-10-11 11:23 | PC.NURSE ---
Addendum entered by Nataly Pak RN 10/11/20 14:44: Patient stated The medication helped calm him down . Original Note: Patient came to the nurses station requesting something to help calm his nerves.
--- NOTE | 2020-10-11 11:37 | PM.NPN ---
Subjective NPU Subjective: Interval history: Continues to report improvement in mood, reports transient, intermittent irritability Denies any interval suicidal ideation or thoughts about self-harm Reports some difficulty with sleep, occasional nightmares Reports being compliant with medication, denies any medication side effects Continues to report daily intrusive thoughts about past trauma Mental Status Exam MSE Comments: Sitting on his bed, calm, cooperative, good eye contact, appropriately groomed and dressed Psychomotor activity is neither increased nor decreased, no agitation Speech is normal rate and volume, spontaneous, fair articulation, not pressured I feel good, congruent affect, not labile Alert and oriented to person, place, time, situation Memory and concentration appear to be intact per interview Thought process, linear, no flight of ideas, no looseness of associations Thought content, no delusions, no hallucinations, no suicidal or homicidal ideation Insight and judgment appear to be fair to intact Vitals/I&O/Wt Last Vital Signs Temp 98.1 F 10/11/20 06:00 Pulse 113 H 10/11/20 06:00 Resp 17 10/11/20 06:00 BP 152/90 10/11/20 06:00 Pulse Ox 96 10/11/20 06:00 10/10/20 10/11/20 10/11/20 22:59 06:59 14:59 Intake Total 480 / 480 Output Total 250 / 250 Balance 230 / 230 Weight last 48 hrs Weight 189.602 kg Data NPU : 10/08/20 19:29 10/08/20 19:29 A&P Assessment and plan (1) Suicidal ideation: Status: Acute (2) Anxiety disorder, unspecified: Status: Acute Qualifiers: Anxiety disorder type: unspecified anxiety disorder Qualified Code(s): F41.9 - Anxiety disorder, unspecified (3) PTSD (post-traumatic stress disorder): Status: Acute Additional A&P Information Improving, daily PTSD symptoms, occasional nightmares, irritability, tolerating medication changes with no reports of any medication side effects INCREASE to sertraline 150 mg daily INCREASE to prazosin 2 mg at bedtime targeting nightmares Involuntary Hold Information 96 Hour Hold: 96 Hour Involuntary Admission: Yes 96 Hour Hold Ending Date: 10/15/20 96 Hour Hold Ending Time: 16:58 Attestations NPU Medical Necessity Statement*: Continues to require psychiatric hospitalization for medication stabilization, coordination for safe discharge Coding Level of Care Code Acute Manager [employer] Diagnoses Suicidal ideation R45.851 Anxiety disorder, unspecified F41.9 Anxiety disorder type: unspecified anxiety disorder PTSD (post-traumatic stress disorder) F43.10
[2020-10-11 13:54] VITALS: BP 145/86; PULSE 88; RESP 18; TEMP 36.4; O2SAT 94
[2020-10-11] MEDS: CLONazepam 0.5 mg Tablet 0.25 MG PO (17:35)
[2020-10-11] MEDS: prazosin 1 mg Capsule PO (20:22)
[2020-10-11 21:01] VITALS: BP 160/91; PULSE 103; RESP 22; TEMP 36.5; O2SAT 94
--- NOTE | 2020-10-11 23:05 | PC.NURSE ---
at 2021, pt was given scheduled HS med. pt was also noted with increased agitation due to being told a lager hospital bed could not be moved to room 170 for his comfort. Pt stated he was told on earlier shift that he could try one of the beds in 151, but was told that said room is warmer, and that if he didn't like it, he could move back and forth from 151 to 170. pt was advised that he can move to a different room, but once he moved, he would need to stay in new room. that he can not be going back and forth. pt voiced his great dislike for the nurse that told him he could. pt was educated that the hospital beds in rooms 150 and 151 are placed across from the nurses desk because we do get patients who medically need a hospital bed and also have the need to be closely monitored by the staff. pt was given vistaril 50mg po for increased agitation. call was placed to Dr Abdullahi and order was received that pt may have a fan placed at his doorway only at night, but that it has to be where it can be monitored on the surveillance camera as well as our q15min checks.
[2020-10-12 06:00] VITALS: BP 119/86; PULSE 112; RESP 20; TEMP 36.8; O2SAT 94
[2020-10-12] MEDS: nicotine 2 mg Gum BUCCAL (07:51)
[2020-10-12] MEDS: CLONazepam 0.5 mg Tablet 0.25 MG PO (07:51)
[2020-10-12] MEDS: sertraline 50 mg Tablet 150 MG PO (07:51)
[2020-10-12] MEDS: lisinopril 20 mg Tablet 40 MG PO (07:52)
[2020-10-12] MEDS: hydroCHLOROthiazide 25 mg Tablet 12.5 MG PO (07:52)
[2020-10-12] MEDS: aspirin 81 mg EC Tablet PO (07:52)
[2020-10-12] MEDS: atorvastatin 40 mg Tablet 20 MG PO (07:52)
--- NOTE | 2020-10-12 08:18 | P.DS_ITS ---
Diagnoses at Discharge Discharge Diagnosis (1) Suicidal ideation: Status: Acute (2) Anxiety disorder, unspecified: Status: Acute Qualifiers: Anxiety disorder type: unspecified anxiety disorder Qualified Code(s): F41.9 - Anxiety disorder, unspecified (3) PTSD (post-traumatic stress disorder): Status: Acute Reason for Visit Reason for Visit: SI Hospital Course Hospital Course 40 year old male with reported history of PTSD, depression and anxiety per chart review presented from [facility] after being medically cleared for complaint of chest pain which was found to be unremarkable. Patient had reported during his work- up that his chest pain was different than his usual anxiety attacks which he states he experiences on a regular basis. 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 Patient continued to report severe anxiety as well as intermittent PTSD symptoms and was started on sertraline which was titrated up to sertraline 150 mg daily as well as prazosin 1 mg at bedtime for nightmares. Patient was also started on clonazepam 1 mg twice daily which was tapered back and discontinued prior to discharge. Patient was denying any suicidal ideation throughout his hospital stay and participated in care after his initial physical and verbal agitation which subsided after verbal redirection. Patient participate in unit milieu with no reports of any behavioral disturbances. Patient was not suicidal and was not endorsing any psychiatric symptoms at the time of discharge and did not appear to pose an imminent threat of harm to self or others. Low to moderate risk of harm to self given no current suicidal ideation and no current endorsement of any psychiatric symptoms although his risk may be elevated if he is noncompliant with his medication or medication management follow-up or is using any alcohol or substances which may elevate his risk in l ead to unexpected, impulsive behavior. Risk mitigation included psychiatric hospitalization, medication stabilization, recommendation to abstain from any alcohol or substances as well as need for compliance with his medication, medication management and therapy follow-up targeting the development of more adaptive coping strategies. Patient was able to communicate his understanding of the nee to abstain from the use of substances and alcohol as well as the need for compliance with his medication, medication management and therapy follow-up in order to further mitigate his risk of harm to self and others. Involuntary Hold Information 96 Hour Hold: 96 Hour Involuntary Admission: Yes 96 Hour Hold Ending Date: 10/15/20 96 Hour Hold Ending Time: 16:58 Mental Status Exam MSE Comments: Standing at the nurses station, polite, interactive, calm, appropriately groomed and dressed, good eye contact Psychomotor activity is neither increased nor decreased, no agitation Speech is normal rate and volume, spontaneous, fair articulation, not pressured Good, congruent affect, not labile Alert and oriented to person, place, time, situation Memory and concentration appear to be intact per interview Thought process, linear, no flight of ideas, no looseness of associations Thought content, no delusions, no hallucinations, no suicidal or homicidal ideat ion Insight and judgment appear to be fair to intact Discharge Data Data Completed and Pending: Completed Studies During Hospitalization Category Date Time Status XR chest 1V pam ble 58333 Stat Exams 10/08/20 19:19 Completed NM harris perf SPECT r/s* [id number] Routin e Nuc Med 10/09/20 00:29 Completed CV echo complete* [id number] Routine Ultrasound 10/09/20 10:35 Completed Pending at discharge Category Date Time Status Sestamibi Stress Test Request Routi ne Exams 10/10/20 06:00 Stop Req Vitals: Last Vital Signs Temp 98.2 F 10/12/20 06:00 Pulse 112 H 10/12/20 06:00 Resp 20 H 10/12/20 06:00 BP 119/86 10/12/20 06:00 Pulse Ox 94 10/12/20 06:00 Discharge Plan Discharge Condition: Stable Prescriptions: New prazosin 1 mg Capsule 1 mg PO BEDTIME Qty: 30 RF: 0 sertraline 50 mg Tablet 150 mg PO DAILY Qty: 30 RF: 0 Continued Aspirin Low Dose 81 mg Tablet,Delayed Release (Dr/Ec) 81 mg PO DAILY RF: 0 lisinopril-hydrochlorothiazide 20-12.5 mg Tablet 1 tab PO DAILY RF: 0 simvastatin 20 mg Tablet 20 mg PO DAILY RF: 0 Discharge Orders: Discharge Order (Routine); Ordered 10/12/20 Ordered By: Julio Abdullahi Other Ambulatory Orders: Pulmonary Function Screen with Bronchodilator (Routine) Timeframe: 2 Days Facility: [facility] - Location: Respiratory Therapy Ordered By: Jeison Munoz Referrals: [facility] [Provider Group] - 1 week ([facility] said they will call you to set up this appt. If you have not heard from them by the please call them at [phone]. Anxiety) Darby Topete DO [Physician] - 10/23/20 10:30 am Discharge Diet: Cardiac Discharge Activity: Increase activity as tolerated Patient Instructions: Simvastatin (By mouth), Lisinopril/Hydrochlorothiazide (By mouth), Cigarette Smoking and Your Health (GEN), Hypertension (GEN), Chest Pain Stoplight, Opioid Safety Activity Restrictions/Additional Instructions: Please monitor your blood pressures at home 2-3 times daily, record values for the next 2 weeks due to noted elevated blood pressures/hypertension in the hospital. Please discuss with your primary care doctor. Continue on blood pres sure medications. Have your primary care doctor follow-up your kidney function at the next appointment. About 30% increase in creatinine may be expected with this medication, however, if increasing beyond that, this medication need to be changed to a different 1. Please stop smoking, as continued smoking puts you at risk of cardiovascular disease, including heart attack, stroke, congestive heart failure, lung disease including emphysema, as well as additional other complications including various cancers. Please follow-up with the pulmonary function test, and discuss results with your primary care provider. Please follow up with behavioral health care to assist with treatment of anxiety in addition to discussing with your primary care provider. If you experience severe chest pain, severe shortness of breath, feeling faint, any worsening of depression, or any other concerning symptoms, please seek medical attention. Discharge Attestations NPU Time Spent in Discharge Care*: greater than 30 min Status at Discharge: Cognitive status at discharge: cognitively intact , Behavioral status at discharge: cooperative , Functional status at discharge: independent ambulation Overall status at discharge: patient is back to baseline Coding Level of Care Code Acute g [facility] note Diagnoses Suicidal ideation R45.851 Anxiety disorder, unspecified F41.9 Anxiety disorder type: unspecified anxiety disorder PTSD (post-traumatic stress disorder) F43.10
[2020-10-12 08:49] VITALS: BP 119/86; PULSE 112; RESP 20; TEMP 36.8; O2SAT 94
== END 2020-10-12 10:58 | disposition home or self-care (01) | DRG 880 ==
LOC: ER 20:01 → CSU 20:11 → NP 10-09 16:18
PROVIDERS: Hospitalist; Admitting Provider Psychiatry & Neurology Psychiatry; Emergency Provider Emergency Medicine; Visit Provider Psychiatry & Neurology Psychiatry
DX: F41.9 Anxiety disorder, unspecified (principal); R45.851 Suicidal ideations; Z68.42 Body mass index [BMI] 45.0-49.9, adult; F43.10 Post-traumatic stress disorder, unspecified; F17.210 Nicotine dependence, cigarettes, uncomplicated; F32.9 Major depressive disorder, single episode, unspecified; I10 Essential (primary) hypertension; E66.9 Obesity, unspecified; F51.5 Nightmare disorder; Z79.82 Long term (current) use of aspirin; Z82.49 Family history of ischemic heart disease and other diseases of the circulatory system
CPT/HCPCS: 36415; 71045; 78452; 80053; 80061; 83036; 84484; 85025; 85378; 93005; 93017; 93306; 96372; 99285; A9500; G0378; J1200; J1630; J2060; J2785

== ENCOUNTER → 2022-08-08 14:07 | Outpatient (BNVA) | payer OTHER, SELFPAY | PROVIDERS: Visit Provider Registered Nurse | DX: Z79.899 Other long term (current) drug therapy (principal) | CPT/HCPCS: 80053; 80061; 83036; 84443; 85025 ==

== ENCOUNTER → 2022-09-06 11:05 | Outpatient (BNVA) | payer OTHER, SELFPAY | PROVIDERS: Visit Provider Registered Nurse | DX: F41.1 Generalized anxiety disorder (principal); F43.12 Post-traumatic stress disorder, chronic; F51.04 Psychophysiologic insomnia; Z79.899 Other long term (current) drug therapy | CPT/HCPCS: 80178 ==